=== PATIENT | female | born 1980 | race Caucasian/White ===

== ENCOUNTER 2022-12-15 05:18 | Emergency (ER) | payer SELFPAY ==
[~2022-12-15] VITALS: Ht 160 cm; Wt 54.4 kg
[2022-12-15 05:35] VITALS: BP_SYST 115; PULSE 77; RESP 16; TEMP 97.3; O2SAT 98
[2022-12-15 06:47] LABS: BASOPHILS # (AUTO) 0.1 K/uL (0.0-0.2); BASOPHILS % (AUTO) 0.8 % (0.0-2.0); EOSINOPHILS # (AUTO) 0.1 K/uL (0.0-0.4); EOSINOPHILS % (AUTO) 0.7 % (0.0-4.0); HEMATOCRIT 42.8 % (36-48); HEMOGLOBIN 14.2 g/dL (12.0-16.0); LYMPHOCYTES # (AUTO) 1.4 K/uL (1.0-5.5); LYMPHOCYTES % (AUTO) 15.5 % (20.5-51.5); MEAN CORPUSCULAR HEMOGLOBIN 31 pg (27-31); MEAN CORPUSCULAR HGB CONC 33 % (32-36); MEAN CORPUSCULAR VOLUME 93 fL (79.0-98.0); MONOCYTES # (AUTO) 0.3 K/uL (0.0-1.0); MONOCYTES % (AUTO) 3.7 % (1.7-9.3); NEUTROPHILS # (AUTO) 7.4 K/uL (1.8-7.7); NEUTROPHILS % (AUTO) 79.3 % (40.0-70.0); PLATELET COUNT (AUTO) 275 K/uL (130-430); RED CELL DISTRIBUTION WIDTH 13.3 % (9.0-15.0); WHITE BLOOD COUNT (AUTO) 9.3 K/uL (4.8-10.8)
[2022-12-15 06:59] LABS: CALCIUM 8.5 mg/dL (8.4-11.0); CREATININE 0.66 mg/dL (0.55-1.30); POTASSIUM 4.3 mmol/L (3.5-5.1)
[2022-12-15 07:10] LABS: ALBUMIN 3.7 g/dL (3.4-4.8); TOTAL PROTEIN, SERUM 7.2 g/dL (6.4-8.3)
[2022-12-15 07:14] LABS: CLARITY/URINE CLOUDY (CLEAR); COLOR,URINE YELLOW (YELLOW)
[2022-12-15 07:15] LABS: BILIRUBIN,URINE NEGATIVE (NEGATIVE); BLOOD, URINE NEGATIVE (NEGATIVE); GLUCOSE,URINE NEGATIVE (NEGATIVE); KETONES,URINE NEGATIVE (NEGATIVE); LEUKOCYTE ESTERASE ,URINE 3+ (NEGATIVE); NITRITE, URINE NEGATIVE (NEGATIVE); PROTEIN URINE TRACE (NEGATIVE); UROBILINOGEN,URINE 0.2 (0.2-1.0)
[2022-12-15 07:16] LABS: BACTERIA,URINE FEW /HPF (None Seen); RBC,URINE 0-3 /HPF (0-3); WBC,URINE 20-50 /HPF (0-3)
[2022-12-15] MEDS ORDERED: cefTRIAXone 1 GM in LIDOCAINE 1%, 20 ML MDV 2.1 ML IM ONE (08:45)
[2022-12-15] MEDS ORDERED: KETOROLAC TROMETHAMINE 60 MG/2 ML VIAL IM ONE (09:00)
[2022-12-15] MEDS ORDERED: NAPR-690 PO (09:25)
[2022-12-15] MEDS ORDERED: CIPR500T5 PO (09:25)
[2022-12-15 09:29] VITALS: BP_SYST 115; PULSE 77; RESP 16; TEMP 97.3; O2SAT 98
== END 2022-12-15 09:29 | disposition home or self-care (01) ==
LOC: SED 05:18
DX: N12 Tubulo-interstitial nephritis, not specified as acute or chronic (principal); R10.32 Left lower quadrant pain; Z79.899 Other long term (current) drug therapy
CPT/HCPCS: 99285; 76856; 80053; 81000; 84702; 85025; 87086; 36415; 96372; J0696; J1885; J2001